=== PATIENT | male | born 1945 | race Caucasian/White ===

== ENCOUNTER 2019-01-03 11:56 | Emergency (ER) | payer MEDICARE, OTHER, SELFPAY ==
[2019-01-03 12:00] VITALS: BP 132/84; PULSE 120; RESP 27; TEMP 36.8; O2SAT 96; BMI 34.6
--- NOTE | 2019-01-03 12:07 | ED.FALL ---
HPI - Fall General Chief Complaint: Trauma Stated Complaint: Fall,Knee and elbow and head pain Time Seen by Provider: 01/03/19 12:05 Source: patient and family () Mode of arrival: ambulatory Limitations: no limitations History of Present Illness HPI Narrative: This is a 73-year-old male comes emergency department with complaint of ground level fall. Patient states that he was moving a traffic cone in [facility]. 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 Patient states he sort of tripped, took a couple stumbling steps and then fell with his hands outstretched onto the ground. Patient states he did hit his head on what he thinks was the side mirror of a vehicle. Patient denies any loss of consciousness. He states that it was not a particularly hard below. States that he did notice that his 5th finger on his right hand looks like it was dislocated. He tends slightly on and it popped back into place. He states it was not tender painful when it occurred. He also has an abrasion on his left elbow as well as bilateral knees. Patient states he required assistance standing but was able to walk without issue otherwise. He denies any neck or back pain. No chest pain or shortness of breath no other GI or urinary symptoms. Patient takes Pradaxa daily for atrial fibrillation. Takes metoprolol, diuretic, statin and vitamin-B and vitamin-D daily. He had an ascending aortic aneurysm which was repaired along with the an aortic valve replacement. He had prostatectomy for prostate cancer and surveillance has been negative. He has also had a right hip replacement. Related Data Allergies Allergy/AdvReac Type Severity Reaction Status Date / Time No Known Drug Allergies Allergy Verified 01/03/19 12:46 Review of Systems Review of Systems ROS Unobtainable: All systems reviewed & are unremarkable except as noted in HPI and below Exam Narrative Exam Narrative: GEN: Patient appears in mild distress. HEAD: No evidence of trauma, no raccoon/Adams sign. NECK: Nontender, painless range of motion, trachea midline Negative Nexus criteria, there is no mid line tenderness, distracting injury, altered mental status, neuro deficit, recent EtOH. EYES: PERRLA, EOMI ENT: External inspection normal, trachea is midline, TM's are normal no hemotypanum, Nares are clear, no septal hematoma, no dental or oral injury, airway is normal and with normal occlusion, No bony tenderness RESP: Chest is nontender and has symmetric movement, no ecchymosis, breath sounds are normal no crackles, wheezes or rales CVS: Heart sounds are normal, no murmur noted, No JVD. ABG/GI: Nontender, soft, normal bowel sounds, no distention, no organomegaly, pelvic rock is negative NEURO: Oriented AOx3, neuro is grossly intact, sensation and motor is normal all 4 extremities moving, cranial nerves II through XII are intact, GCS is 15 PSYCH: Normal mood and affect SKIN: Patient has a superficial abrasion on the right elbow that is about 2 cm circumferential, patient also has abrasions on bilateral knees that are about 2-4 cm and superficial, warm and dry, no crepitus and without decubitus BACK: No CVA tenderness, no vertebral tenderness, no step-off's, no crepitus EXT: Atraumatic, hips are nontender, no pedal edema, normal color and temperature, normal range of motion of extremities with normal tendon exam, 2+ pulses in all four extremities. Patient's right hand he has no bony tenderness, he can flex and extend his finger without issue, he has normal sensation. Less than 2 seconds cap refill in all 5 fingers with 2+ radial pulse. Initial Vital Signs Initial Vital Signs: Vital Signs Temperature 98.3 F 01/03/19 12:00 Pulse Rate 120 H 01/03/19 12:00 Respiratory Rate 27 H 01/03/19 12:00 Blood Pressure 132/84 01/03/19 12:00 Pulse Oximetry 96 01/03/19 12:00 [facility] Medical History (Updated 01/03/19 @ 13:23 by Daniela Garza DO) Ascending aortic aneurysm (Chronic) Surgical History H/O aortic valve replacement (Chronic) H/O prostatectomy (Chronic) History of right hip replacement (Chronic) Social History Smoking Status: Former smoker Social History Smoking Status: Former smoker Scores GCS Vern coma scale eye opening: Spontaneous [place] coma scale verbal response: Orientated [place] coma scale motor response: Obey commands [place] coma scale total score: 15 Course Orders Ordered: ED Orders 01/03/19 12:22 CT head/brain wo con Stat XR hand RT min 3V Stat Discontinued Medications Bacitracin (Bacitracin) 3 applic TOP NOW ONE Stop: 01/03/19 13:46 Last Admin: 01/03/19 14:01 Dose: 3 applic Diphtheria/Tetanus/Acell Pertussis (Adacel) 0.5 ml IM .ONCE ONE Stop: 01/03/19 12:23 Last Admin: 01/03/19 12:46 Dose: 0.5 ml Vital Signs - 8 hr 01/03/19 12:00 01/03/19 13:04 01/03/19 14:01 Temperature 98.3 F Pulse Rate 120 H 97 H 79 Respiratory Rate 27 H 24 17 Blood Pressure 132/84 106/67 Blood Pressure [Right Arm] 118/94 H Pulse Oximetry 96 96 97 MDM - Fall Imaging Data CT scan - head: Radiologist's impression: [address] [address] [address] Scan Report Signed Patient: Hang Garrido CMR#: [id number] : 6Acct:[id number] Age/Sex: 73 / MDate of Service: 01/03/19 Loc: ED Accession Number: [id number] Procedure: CT head/brain wo con Ordering Provider: Daniela Garza D.O. PROCEDURE: CT HEAD/BRAIN WO CON INDICATIONS: fall, hit head on car, on pradaxa TECHNIQUE: Noncontrast 4.5 mm thick angled axial sections acquired from the foramen magnum to the vertex, with coronal and sagittal reformats. For radiation dose reduction, the following was used: automated exposure control, adjustment of mA and/or kV according to patient size. COMPARISON: None. FINDINGS: Image quality: Excellent. CSF spaces: Basal cisterns are patent. No extra-axial fluid collections. The ventricles are symmetric in size and shape. Brain: No intracranial bleeds or masses. There is cerebral volume loss for age, with resultant ventricular and sulcal prominence. There are periventricular and deep white matter chronic small vessel ischemic changes. Incidental note of prominent right transverse sinus. There is intracranial internal carotid artery atherosclerosis. Skull and face: Calvarium and visualized facial bones appear intact, without suspicious lesions. Sinuses: Opacified bilateral maxillary sinuses. Remaining paranasal sinuses and mastoids are clear. IMPRESSION: CT head without acute intracranial abnormalities. No calvarial fractures. Age-related senescent changes and sequela of chronic small vessel ischemic disease. Bilateral maxillary sinus disease. Dictated by: Gautam Schulte M.D. on 01/03/2019 at 12:43 Approved by: Gautam Schulte M.D. on 01/03/2019 at 12:47 hand xray: Radiologist's impression: [address] [address] XRay Report Signed Patient: Hang Garrido CMR#: [id number] : 1946Acct:[id number] Age/Sex: 73 / MDate of Service: 01/03/19 Loc: ED Accession Number: [id number] Procedure: XR hand RT min 3V Ordering Provider: Daniela Garza D.O. 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 COMPARISON: None. FINDINGS: Bones: No fractures or dislocations. Carpal bones are normally aligned. No suspicious bony lesions. Soft tissues: No suspicious soft tissue calcifications. IMPRESSION: Right hand without acute fracture or dislocation. Dictated by: Gautam Schulte M.D. on 01/03/2019 at 13:13 Approved by: Gautam Schulte M.D. on 01/03/2019 at 13:14 [facility] Narrative Medical decision making narrative: Patient's head CT is negative, hand x-rays negative for fracture. Patient has what sounds like was likely a dislocation that he self reduced. Plan to splint and follow up with PCP. Patient is to continue his home medications as prescribed. He is in and out of atrial fibrillation but is anticoagulated appropriately and heart rate occasionally bumps up but has been in the 90s range majority of his stay. Patient is otherwise asymptomatic. He has multiple abrasions on his knees with plan for wound care. Head CT is negative. Patient ambulated without issue. HR is in 70's without any other issues. Discharge Plan Departure Patient Disposition: Home Clinical Impression: Head injury Discharge Date/Time: 01/03/19 14:06 Interventions: ED Discharge Assessment Last Done: 01/03/19 14:01 Instructions: DI for Closed Head Injury Activity Restrictions/Additional Instructions: Follow-up with primary care in the next 5-7 days for recheck and for removal of your splint. You may continue all your home medications as prescribed. Return to the emergency department for altered mental status, sudden severe headaches, vision changes, persistent vomiting, new neck pain, chest pain or abdominal pain, lightheadedness or passing out, new weakness, numbness or other new or concerning symptoms. Splint Care: Keep splint clean and dry. Elevated affected body part to decrease swelling. OK to use ice pack on the affected body part. Use for 15-20 minutes each time, for 5-6x per day. If you develop worsening pain, numbness, tingling, discoloration of the affected body part, loosen the splint, and either see your doctor for an urgent re-assessment, or return to the Emergency Department. Return to the Emergency Department for any new or worsening symptoms. Wound Care: Keep wound(s) clean and dry. Wash daily with soap and water only. Do not use over the counter products (alcohol or peroxide)on the wounds unless instructed by a physician, you may use a triple antibiotic ointment twice daily to affected areas. If wound condition worsens (increased/expanding redness, developing fluid blisters, or worsening pain), either contact your doctor for an urgent re-assessment , or return to the Emergency Department. Return if fever greater than 100.4 Fahrenheit, increased swelling, increasing pain or worsening symptoms such as increased discharge or spreading redness. Referrals: Kingsley Holguin MD [Primary Care Provider] -
--- NOTE | 2019-01-03 12:23 | ED_ITS ---
HPI - Fall General Chief Complaint: Trauma Stated Complaint: Fall,Knee and elbow and head pain Time Seen by Provider: 01/03/19 12:05 Source: patient and family () Mode of arrival: ambulatory Limitations: no limitations History of Present Illness HPI Narrative: This is a 73-year-old male comes emergency department with complaint of ground level fall. Patient states that he was moving a traffic cone in [facility]. 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 Patient states he sort of tripped, took a couple stumbling steps and then fell with his hands outstretched onto the ground. Patient states he did hit his head on what he thinks was the side mirror of a vehicle. Patient denies any loss of consciousness. He states that it was not a particularly hard below. States that he did notice that his 5th finger on his right hand looks like it was dislocated. He tends slightly on and it popped back into place. He states it was not tender painful when it occurred. He also has an abrasion on his left elbow as well as bilateral knees. Patient states he required assistance standing but was able to walk without issue otherwise. He denies any neck or back pain. No chest pain or shortness of breath no other GI or urinary symptoms. Patient takes Pradaxa daily for atrial fibrillation. Takes metoprolol, diuretic, statin and vitamin-B and vitamin-D daily. He had an ascending aortic aneurysm which was repaired along with the an aortic valve replacement. He had prostatectomy for prostate cancer and surveillance has been negative. He has also had a right hip replacement. Related Data Allergies Allergy/AdvReac Type Severity Reaction Status Date / Time No Known Drug Allergies Allergy Verified 01/03/19 12:46 Review of Systems Review of Systems ROS Unobtainable: All systems reviewed & are unremarkable except as noted in HPI and below Exam Narrative Exam Narrative: GEN: Patient appears in mild distress. HEAD: No evidence of trauma, no raccoon/Adams sign. NECK: Nontender, painless range of motion, trachea midline Negative Nexus criteria, there is no mid line tenderness, distracting injury, altered mental status, neuro deficit, recent EtOH. EYES: PERRLA, EOMI ENT: External inspection normal, trachea is midline, TM's are normal no hemotypanum, Nares are clear, no septal hematoma, no dental or oral injury, airway is normal and with normal occlusion, No bony tenderness RESP: Chest is nontender and has symmetric movement, no ecchymosis, breath sounds are normal no crackles, wheezes or rales CVS: Heart sounds are normal, no murmur noted, No JVD. ABG/GI: Nontender, soft, normal bowel sounds, no distention, no organomegaly, pelvic rock is negative NEURO: Oriented AOx3, neuro is grossly intact, sensation and motor is normal all 4 extremities moving, cranial nerves II through XII are intact, GCS is 15 PSYCH: Normal mood and affect SKIN: Patient has a superficial abrasion on the right elbow that is about 2 cm circumferential, patient also has abrasions on bilateral knees that are about 2- 4 cm and superficial, warm and dry, no crepitus and without decubitus BACK: No CVA tenderness, no vertebral tenderness, no step-off's, no crepitus EXT: Atraumatic, hips are nontender, no pedal edema, normal color and temperature, normal range of motion of extremities with normal tendon exam, 2+ pulses in all four extremities. Patient's right hand he has no bony tenderness, he can flex and extend his finger without issue, he has normal sensation. Less than 2 seconds cap refill in all 5 fingers with 2+ radial pulse. Initial Vital Signs Initial Vital Signs: Vital Signs Temperature 98.3 F 01/03/19 12:00 Pulse Rate 120 H 01/03/19 12:00 Respiratory Rate 27 H 01/03/19 12:00 Blood Pressure 132/84 01/03/19 12:00 Pulse Oximetry 96 01/03/19 12:00 [facility] Medical History (Updated 01/03/19 @ 13:23 by Daniela Garza DO) Ascending aortic aneurysm (Chronic) Surgical History H/O aortic valve replacement (Chronic) H/O prostatectomy (Chronic) History of right hip replacement (Chronic) Social History Smoking Status: Former smoker Social History Smoking Status: Former smoker Scores GCS Vern coma scale eye opening: Spontaneous [place] coma scale verbal response: Orientated Vern coma scale motor response: Obey commands Vern coma scale total score: 15 Course Orders Ordered: ED Orders 01/03/19 12:22 CT head/brain wo con Stat XR hand RT min 3V Stat Discontinued Medications Bacitracin (Bacitracin) 3 applic TOP NOW ONE Stop: 01/03/19 13:46 Last Admin: 01/03/19 14:01 Dose: 3 applic Diphtheria/Tetanus/Acell Pertussis (Adacel) 0.5 ml IM .ONCE ONE Stop: 01/03/19 12:23 Last Admin: 01/03/19 12:46 Dose: 0.5 ml Vital Signs - 8 hr 01/03/19 12:00 01/03/19 13:04 01/03/19 14:01 Temperature 98.3 F Pulse Rate 120 H 97 H 79 Respiratory Rate 27 H 24 17 Blood Pressure 132/84 106/67 Blood Pressure [Right Arm] 118/94 H Pulse Oximetry 96 96 97 MDM - Fall Imaging Data CT scan - head: Radiologist's impression: [address] [address] [address] Scan Report Signed Patient: Hang Garrido CMR#: [id number] : 6Acct:[id number] Age/Sex: 73 / MDate of Service: 01/03/19 Loc: ED Accession Number: [id number] Procedure: CT head/brain wo con Ordering Provider: Daniela Garza D.O. PROCEDURE: CT HEAD/BRAIN WO CON INDICATIONS: fall, hit head on car, on pradaxa TECHNIQUE: Noncontrast 4.5 mm thick angled axial sections acquired from the foramen magnum to the vertex, with coronal and sagittal reformats. For radiation dose reduction, the following was used: automated exposure control, adjustment of mA and/or kV according to patient size. COMPARISON: None. FINDINGS: Image quality: Excellent. CSF spaces: Basal cisterns are patent. No extra-axial fluid collections. The ventricles are symmetric in size and shape. Brain: No intracranial bleeds or masses. There is cerebral volume loss for age, with resultant ventricular and sulcal prominence. There are periventricular and deep white matter chronic small vessel ischemic changes. Incidental note of prominent right transverse sinus. There is intracranial internal carotid artery atherosclerosis. Skull and face: Calvarium and visualized facial bones appear intact, without suspicious lesions. Sinuses: Opacified bilateral maxillary sinuses. Remaining paranasal sinuses and mastoids are clear. IMPRESSION: CT head without acute intracranial abnormalities. No calvarial fractures. Age-related senescent changes and sequela of chronic small vessel ischemic disease. Bilateral maxillary sinus disease. Dictated by: Gautam Schulte M.D. on 01/03/2019 at 12:43 Approved by: Gautam Schulte M.D. on 01/03/2019 at 12:47 hand xray: Radiologist's impression: [address] [address] XRay Report Signed Patient: Hang Garrido CMR#: [id number] : 1946Acct:[id number] Age/Sex: 73 / MDate of Service: 01/03/19 Loc: ED Accession Number: [id number] Procedure: XR hand RT min 3V Ordering Provider: Daniela Garza D.O. 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 COMPARISON: None. FINDINGS: Bones: No fractures or dislocations. Carpal bones are normally aligned. No suspicious bony lesions. Soft tissues: No suspicious soft tissue calcifications. IMPRESSION: Right hand without acute fracture or dislocation. Dictated by: Gautam Schulte M.D. on 01/03/2019 at 13:13 Approved by: Gautam Schulte M.D. on 01/03/2019 at 13:14 [facility] Narrative Medical decision making narrative: Patient's head CT is negative, hand x-rays negative for fracture. Patient has what sounds like was likely a dislocation that he self reduced. Plan to splint and follow up with PCP. Patient is to continue his home medications as prescribed. He is in and out of atrial fibrillation but is anticoagulated appropriately and heart rate occasionally bumps up but has been in the 90s range majority of his stay. Patient is otherwise asymptomatic. He has multiple abrasions on his knees with plan for wound care. Head CT is negative. Patient ambulated without issue. HR is in 7 0's without any other issues. Discharge Plan Departure Patient Disposition: Home Clinical Impression: Head injury Discharge Date/Time: 01/03/19 14:06 Interventions: ED Discharge Assessment Last Done: 01/03/19 14:01 Instructions: DI for Closed Head Injury Activity Restrictions/Additional Instructions: Follow-up with primary care in the next 5-7 days for recheck and for removal of your splint. You may continue all your home medications as prescribed. Return to the emergency department for altered mental status, sudden severe headaches, vision changes, persistent vomiting, new neck pain, chest pain or abdominal pain, lightheadedness or passing out, new weakness, numbness or other new or concerning symptoms. Splint Care: Keep splint clean and dry. Elevated affected body part to decrease swelling. OK to use ice pack on the affected body part. Use for 15-20 minutes each time, for 5-6x per day. If you develop worsening pain, numbness, tingling, discoloration of the affected body part, loosen the splint, and either see your doctor for an urgent re-assessment, or return to the Emergency Department. Return to the Emergency Department for any new or worsening symptoms. Wound Care: Keep wound(s) clean and dry. Wash daily with soap and water only. Do not use over the counter products (alcohol or peroxide)on the wounds unless instructed by a physician, you may use a triple antibiotic ointment twice daily to affected areas. If wound condition worsens (increased/expanding redness, developing fluid blisters, or worsening pain), either contact your doctor for an urgent re- assessment , or return to the Emergency Department. Return if fever greater than 100.4 Fahrenheit, increased swelling, increasing pain or worsening symptoms such as increased discharge or spreading redness. Referrals: Kingsley Holguin MD [Primary Care Provider] -
[2019-01-03] MEDS: TET,DIPH,PERTUSS(ACELL),VAC/PF 0.5 ML SYRINGE IM (12:46)
[2019-01-03 13:04] VITALS: BP 118/94; PULSE 97; RESP 24; O2SAT 96
[2019-01-03 14:01] VITALS: BP 106/67; PULSE 79; RESP 17; O2SAT 97
[2019-01-03] MEDS: BACITRACIN OINT 0.9 GM PCKT 3 APPLIC TOP (14:01)
== END 2019-01-03 14:06 | disposition home or self-care (01) ==
PROVIDERS: Emergency Provider Emergency Medicine; PCP Family Medicine
DX: S09.90XA Unspecified injury of head, initial encounter (principal); M79.644 Pain in right finger(s); W01.198A Fall on same level from slipping, tripping and stumbling with subsequent striking against other object, initial encounter; Z23 Encounter for immunization; Z79.02 Long term (current) use of antithrombotics/antiplatelets
CPT/HCPCS: 29130; 70450; 73130; 90471; 99283; 99284; 90715